=== PATIENT | male | born 1980 | race African-American/Black ===

== ENCOUNTER 2018-02-25 02:51 | Emergency (ER) | payer SELFPAY ==
[~2018-02-25] VITALS: Ht 182.9 cm; Wt 72.6 kg
[2018-02-25 02:55] VITALS: BP 155/95
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
== END 2018-02-25 03:30 | disposition home or self-care (01) ==
LOC: ER 02:51
DX: R07.89 Other chest pain (principal); R07.81 Pleurodynia; R03.0 Elevated blood-pressure reading, without diagnosis of hypertension; F12.10 Cannabis abuse, uncomplicated
CPT/HCPCS: 71101; 99281; 99284

== ENCOUNTER 2018-12-15 02:49 | Emergency (ER) | payer SELFPAY ==
[~2018-12-15] VITALS: Ht 182.9 cm; Wt 70.3 kg
[2018-12-15] MEDS ORDERED: DIPHTH,PERTUSS(ACELL),TET TOX 0.5 ML DISP.SYRIN. VAX IM ONE (03:15)
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
[2018-12-15] MEDS ORDERED: traMADol 50 MG TABLET PO ONE (03:45)
[2018-12-15 03:58] VITALS: BP 108/54
[2018-12-15] MEDS ORDERED: NAPR-683 PO (04:06)
== END 2018-12-15 04:15 | disposition home or self-care (01) ==
LOC: ER 02:49 → EEVIPCON 02:49 → ER 04:15
DX: S01.111A Laceration without foreign body of right eyelid and periocular area, initial encounter (principal); R51 Headache; F10.20 Alcohol dependence, uncomplicated; Y90.9 Presence of alcohol in blood, level not specified; Z72.0 Tobacco use; F12.10 Cannabis abuse, uncomplicated; Z71.6 Tobacco abuse counseling; Z91.013 Allergy to seafood; Y08.09XA Assault by strike by other specified type of sport equipment, initial encounter; Y93.89 Activity, other specified; Y92.89 Other specified places as the place of occurrence of the external cause; Y99.8 Other external cause status
CPT/HCPCS: 12011; 70450; 72125; 90471; 90715; 99284; 99285

== ENCOUNTER 2019-07-26 08:30 | Emergency (ER) | payer SELFPAY ==
[~2019-07-26] VITALS: Ht 182.9 cm; Wt 70.0 kg
[~2019-07-26 08:30] MED LIST: NAPR-683 PO
--- NOTE | 2019-07-26 09:38 | RAD ---
Ribs right with PA chest History: Pain PA view of the chest and dedicated views of the left ribs were obtained. The heart and pulmonary vessels appear normal. There is vague patchy opacity in the lower left lung. The visualized osseous structures appear intact. Impression: 1. Mild left basal infiltrate likely discoid atelectasis. 2. No evidence of a bony displaced rib fracture. Electronically signed by: Mikal Paredes III, MD (07/26/2019 9:35 AM) [id number]
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
[2019-07-26 10:14] VITALS: BP 114/61
== END 2019-07-26 10:10 | disposition home or self-care (01) ==
LOC: ER 08:30
DX: S20.211A Contusion of right front wall of thorax, initial encounter (principal); R07.81 Pleurodynia; F12.90 Cannabis use, unspecified, uncomplicated; F17.200 Nicotine dependence, unspecified, uncomplicated; F10.10 Alcohol abuse, uncomplicated; Z91.013 Allergy to seafood; W22.8XXA Striking against or struck by other objects, initial encounter; Y93.89 Activity, other specified; Y92.89 Other specified places as the place of occurrence of the external cause; Y99.8 Other external cause status
CPT/HCPCS: 71101; 99283

== ENCOUNTER 2021-05-25 17:33 | Emergency (ER) | payer SELFPAY ==
[~2021-05-25] VITALS: Ht 182.9 cm; Wt 75.0 kg
[2021-05-25 19:00] VITALS: BP 124/80
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
[2021-05-25] MEDS ORDERED: IBUPROFEN 200 MG TABLET. PO ONE (19:45)
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
== END 2021-05-25 20:35 | disposition home or self-care (01) ==
LOC: ER 17:33
DX: M25.561 Pain in right knee (principal); F17.200 Nicotine dependence, unspecified, uncomplicated; F10.20 Alcohol dependence, uncomplicated; Y90.9 Presence of alcohol in blood, level not specified; Z91.013 Allergy to seafood
CPT/HCPCS: 73564; 99283